=== PATIENT | male | born 1975 | race Caucasian/White ===

== ENCOUNTER 2020-01-27 20:13 | Observation (INO) | payer SELFPAY ==
[2020-01-27 20:18] VITALS: BP 164/93; PULSE 96; RESP 16; TEMP 36.6; O2SAT 96; BMI 34.8
--- NOTE | 2020-01-27 20:29 | W.ED.ABDPA2 ---
HPI - Abdominal Pain General: Chief Complaint: Abdominal Pain Stated Complaint: GALL BLADDER SURGERY Time Seen by Provider: 01/27/20 20:20 Source: patient and EMS Mode of arrival: EMS Limitations: no limitations History of Present Illness: HPI narrative: Mr. Walker is a nice 44-year-old male who was transferred here from [facility] for evaluation for acute cholecystitis. Patient had been accepted by Dr. Briceño in transfer. Please see the patient's outpatient records from [facility] in the ER as they include all of the patient's labs and imaging that was performed today. Patient claims has been having abdominal pain since last night all located in the epigastric area. He is still continue to have pain at this time. Review of patient's paperwork reveals an elevated white count of 13,000 but normal INR. Patient had a normal chemistry including liver enzymes total bilirubin and alkaline phosphatase. Lipase was normal along with magnesium and troponin. Ultrasound showed cholecystitis with a thickened gallbladder wall at 6.1 mm and a common bile duct of 5.1 mm. Patient had visualized gallstones. CT scan of abdomen and pelvis showed distended gallbladder with cholelithiasis in the neck of the gallbladder. Patient also showed inflammatory changes of the ileal bowel wall suggesting a nonspecific enteritis and also showed a possible inflammation of the distal colon suggesting is nonspecific proctitis. Patient's urinalysis was positive for nitrites, leukocyte esterase, 3-5 white cells and 4+ bacteria. Patient got decent pain relief at [facility] and then was transferred here. Patient claims he has mild pain at this time. Associated Symptoms: Reports nausea; Denies chills, coffee ground emesis, constipation, GI cramping, diarrhea, dysuria, fever(s), heartburn, hematochezia, hematuria, hematemesis, melena, syncope and vomiting Review of Systems Const: Denies: fever(s), chills, body aches, fatigue, malaise or diaphoresis Eyes: Denies: change in vision, blurry vision, photophobia, eye discomfort, eye discharge, eye redness or yellow eyes ENMT: Denies: throat pain, odynophagia, hoarseness, swelling of lips/tongue, ear or mastoid pain, ear discharge, change in hearing or nasal discharge Card: Denies: chest pain, palpitations, irregular heart rhythm, edema, lightheadedness, syncope, pre-syncope, dyspnea on exertion or orthopnea Resp: Denies: dyspnea, productive cough, non-productive cough, wheezing, hemoptysis or chest congestion GI: Reports: abdominal pain and nausea; Denies: vomiting, hematemesis, coffee ground emesis, heartburn, diarrhea, constipation, GI cramping, hematochezia or melena : Denies: flank pain, dysuria, urinary frequency, urinary urgency or hematuria Musc: Denies: neck pain, back pain, extremity pain, extremity swelling, joint pain, joint swelling, joint redness, joint warmth or joint stiffness Skin/Breast: Denies: rash, pruritus, erythema, skin pain or skin tenderness Neuro: Denies: headache(s), numbness in extremities, weakness in extremities, sensory changes, lack of coordination, difficulty walking, dizziness, vertigo, confusion, Slurred speech present or seizure-like activity Victor Hugo/Lymph: Denies: easy bruising, easy bleeding, petechiae, purpura or enlarged lymph nodes All/Imm: Denies: urticaria, throat swelling, tongue swelling, facial swelling or acute wheezing PFSH ED PFSH: Medical History Epididymitis Kidney stones Surgical History No pertinent past surgical history Physical Exam Const: COMMON NORMALS: no acute distress, patient oriented x3, no limitations and alert GENERAL APPEARANCE: cooperative HENMT: COMMON NORMALS: normocephalic, atraumatic, external ears normal, EAC's normal and Normal external nose present HEAD & SCALP: normal to inspection, normocephalic and atraumatic FACE & SINUS: normal facial exam and face symmetric NOSE: Normal external nose present and Normal nares present EXTERNAL EAR: Yes external ears normal EXTERNAL AUDITORY CANAL: EAC's normal MOUTH: Normal oral and palatal mucosa present, lip normal and tongue normal Eye: COMMON NORMALS: Equal, round and reactive pupils present and conjunctivae normal GENERAL EYE: appearance normal, both eyes and all related structures ALIGNMENT: Yes alignment normal PERIORBITAL: periorbital findings normal EYELID: eyelids normal CONJUNCTIVA: Yes conjunctivae normal SCLERA: sclerae normal PUPIL: Yes Equal, round and reactive pupils present Neck/C-Spine: COMMON NORMALS: full ROM, no lymphadenopathy, supple, no meningeal signs and no JVD GENERAL: Yes normal visual inspection and Yes trachea midline Chest: COMMONS NORMALS: normal inspection of the chest and normal palpation of entire chest wall Resp: COMMON NORMALS: normal respiratory effort, No retractions, No use of accessory muscles and clear to auscultation bilaterally EFFORT & INSPECTION: Yes able to speak in complete sentences and Yes symmetric chest movement AUSCULTATION: clear to auscultation bilaterally, no crackles, no rales, no rhonchi and no wheezes Cardio: COMMON NORMALS: no JVD, regular rate, regular rhythm, S1 normal heart sound present and S2 normal heart sound present RATE: regular rate RHYTHM: regular rhythm HEART SOUNDS: S1 normal heart sound present, S2 normal heart sound present, no click, no gallops, no murmurs and no rubs GI: COMMON NORMALS: Soft to palpation and No hepatosplenomegaly present PALPATION: Yes Soft to palpation, Yes Tenderness to palpation present (GI) Details: RUQ, No Guarding due to palpation present (GI), No Rigid due to palpation, Yes No hepatosplenomegaly present, No Hernia present, No Palpable mass present and No Pulsatile mass present : COMMON NORMALS: Yes no CVA tenderness BLADDER/KIDNEY EXAM: Yes no CVA tenderness Back/Pelvis: COMMON NORMALS: no CVA tenderness, thoracic and lumbar spine normal to inspection, no thoracic nor lumbar tenderness and thoraco-lumbar ROM normal Extremity: COMMON NORMALS: normal to inspection, full ROM, capillary refill normal, no joint enlargement, no clubbing, cyanosis or edema and no calf tenderness Neuro: COMMON NORMALS: patient oriented x3, CN's II-XII intact bilaterally, moves all extremities, no focal motor deficits and no sensory deficits noted SENSORIUM/ORIENTATION: Yes alert MENINGEAL SIGNS: Yes no meningeal signs SPEECH: speech normal Psych: COMMON NORMALS: mental status grossly normal, Normal thought process present, cooperative, normal affect, speech normal and activity/motor behavior normal SPEECH: Yes normal speech THOUGHT PROCESS: Normal thought process present Skin: COMMON NORMALS: no rashes or lesions noted, turgor normal, no jaundice, no petechiae and no mottling GENERAL SKIN EXAM: no rashes or lesions noted and turgor normal Course Vital Signs: Vital signs: Vital Signs Temperature 97.9 F 01/27/20 20:18 Pulse Rate 96 11/18/20 20:18 Respiratory Rate 16 01/27/20 20:18 Blood Pressure 164/93 01/27/20 20:18 Pulse Oximetry 96 01/27/20 20:18 MDM - Abdominal Pain MDM Narrative: Medical decision making narrative: Mr. Walker is a nice 44-year-old male who comes in as a transfer from [facility]. Per review of the chart the patient was found to have acute cholecystitis, possibly enteritis and proctitis. I reviewed the case in its entirety with Dr. Birmingham who was somewhat familiar with the patient. He agrees at this time to admit the patient for acute cholecystitis. We will start the patient IV fluids, pain medication and the patient will receive Zosyn. Dr. Birmingham's plan is to evaluate the patient in the morning and determine where to move forward from there. Medical Records: Attestation: I reviewed the patient's medical records. Medical records narrative: All paperwork from [facility] that was transferred with the patient is reviewed. This paperwork will be scanned made a part of this patient's chart. EKG Data ^: EKG 1: Attestation: I personally reviewed and interpreted this EKG as follows: EKG interpretation date: 01/27/20 EKG interpretation time: 14:07 Interpretation: Normal sinus rhythm at 89 beats a minute, normal axis, no blocks, no acute ST-T wave changes. Discharge Plan Discharge Patient Disposition: Placed in Observation Clinical Impression: Acute calculous cholecystitis Condition: Stable Coding Level of Care Code ED Cigarette Making Examiner for Violette Hanks
[2020-01-27 21:03] VITALS: RESP 18; O2SAT 97
[2020-01-27] MEDS: morphine 4 mg/mL SDV 1 mL IVP (21:03)
[2020-01-27] MEDS: ondansetron 2 mg/ML SDV 2 mL 4 MG IVP (21:03)
[2020-01-27] MEDS: sodium chloride 0.9% 1,000 ML 999 ML IV (21:06)
[2020-01-27] MEDS: piperacillin-tazobactam 3.375 GM in sodium chloride 0.9% (plus) 50 ML IV (21:07)
[2020-01-27 22:39] VITALS: BP 140/79; PULSE 87; RESP 16; O2SAT 96
[2020-01-27 23:05] VITALS: BP 134/79; PULSE 81; RESP 18; TEMP 37.2; O2SAT 97
[2020-01-28] VITALS (23 sets, daily range): BP systolic 115–162; BP diastolic 68–92; PULSE 62–102; RESP 16–24; TEMP 36.5–37.2; O2SAT 90–98
[2020-01-28] MEDS: sodium chloride 0.9% 1,000 ML 100 ML IV ×2 (00:45→11:29)
[2020-01-28] MEDS: morphine 4 mg/mL SDV 1 mL IVP (01:38)
[2020-01-28 03:11] LABS: Basophils # 0.1 10^3/uL (0.0-0.1); Basophils % 0.4 %; Eosinophils # 0.1 10^3/uL (0.0-0.8); Eosinophils % 0.9 %; Hematocrit 44.3 % (42.0-52.0); Hemoglobin 15.4 g/dL (11.7-16.6); Lymphocytes # 1.9 10^3/uL (0.8-4.8); Lymphocytes % 16.1 %; Mean Corpuscular HGB Conc 34.8 g/dL (30.0-36.0); Mean Corpuscular Hemoglobin 29.5 pg (28.0-34.0); Mean Corpuscular Volume 84.9 fL (80-94); Mean Platelet Volume 9.8 fL (7.4-10.4); Monocytes # 1.4 10^3/uL (0.2-0.9); Monocytes % 11.9 %; Neutrophils # 8.33 10^3/uL (1.8-7.7); Neutrophils % 70.5 %; Nucleated Red Blood Cells % 0 %; Platelet Count 210 10^3/cmm (130-400); Red Blood Count 5.22 10^6/uL (4.1-5.3); Red Cell Distribution Width 12.6 % (12.1-15.1); White Blood Count 11.8 10^3/uL (4.0-10.0)
[2020-01-28 03:29] LABS: Partial Thromboplastin Time 33.2 SECONDS (23.9-36.7)
[2020-01-28 03:40] LABS: Alanine Aminotransferase 46 U/L (0-41); Albumin Level 3.9 g/dL (3.5-5.2); Alkaline Phosphatase 76 IU/L (40-130); Aspartate Amino Transferase 20 U/L (0-40); Blood Urea Nitrogen 13 mg/dL (6-20); Calcium 8.3 mg/dL (8.5-10.5); Carbon Dioxide 24 mmol/L (22-29); Chloride 105 mmol/L (98-107); Globulin 2.4 g/dL (1.3-4.6); Glucose 103 mg/dL (65-115); Osmolality Calculated 288 mOsm/kg (285-295); Sodium 139 mmol/L (136-145); Total Bilirubin 0.8 mg/dL (0.15-1.2); Total Protein 6.3 g/dL (6.6-8.7)
--- NOTE | 2020-01-28 05:52 | P.HP_ITS ---
Providers/Chief Complaint Admitting Physician: Kody Birmingham MD Chief Complaint: GALL BLADDER SURGERY History of Present Illness Cheko Walker is a 44 year old male who says he started having upper abdominal fullness and discomfort around 36 hours ago after eating a meal of chicken patties and stuffing. He says the pain persisted that evening and he woke up around 1 AM and took some [id number] pain medication and a stool softener, thinking he may be constipated even though he had had a bowel movement the day before. By 4 AM the pain had worsened. He decided he wanted to go to the local emergency room and so while he was getting up and walking around and getting ready, he says he passed out and woke up on the floor. Surprisingly, however, he says he woke up feeling considerably better and so he decided not to go to [facility] emergency room. He ate some cereal for breakfast yesterday morning afterwards but then wished he had not, as the pain returned. He says he did not really feel gassy or bloated with the pain but did have some nausea. He never vomited. He ended up going to the emergency department in [place] and imaging and laboratory studies were found to be consistent with acute cholecystitis, including an ultrasound which revealed cholelithiasis and gallbladder wall thickening up to 6 mm, and a CAT scan which showed cholelithiasis with a stone in the neck of the gallbladder. Liver function studies were all reported to be normal, as well as a serum lipase. He had some other nonspecific findings in the abdomen on imaging. He was eventually transferred to [place] for further management. The patient says he feels a little bit better this morning as long as he does not move around. He never did have any fevers or chills with any of this. His last bowel movement was yesterday morning. He denies any previous history of food intolerances or similar episodes of pain to this. He has dealt with some kidney stones that have passed by history, but the pain was different than this. Review of Systems General: Reports: 10 or more systems reviewed and unremarkable except in HPI and below Const: Denies: fever(s) or chills Resp: Denies: productive cough GI: Reports: abdominal pain and nausea; Denies: vomiting : Denies: difficulty urinating or dysuria Medications/Allergies Home Medications Medication Instructions Recorded Confirmed Last Taken Type acetaminophen 2,000 mg PO PRN 01/27/20 01/27/20 01/27/20 01:00 History Allergies Allergy/AdvReac Type Severity Reaction Status Date / Time shellfish derived AdvReac nausea/vom Verified 01/28/20 05:57 iting PFSH Acute PFSH: Medical History (Updated 01/28/20 @ 06:00 by Kody Birmingham MD) Epididymitis Kidney stones passed Surgical History No pertinent past surgical history Social History (Updated 01/28/20 @ 05:58 by Kody Birmingham MD) Smoking and tobacco status: never smoked Alcohol intake: current Alcohol intake frequency: holidays/special occasions only Vitals/I&O/Wt Last Vital Signs Temp 98.2 F 01/28/20 04:38 Pulse 81 01/28/20 04:38 Resp 18 01/28/20 04:38 BP 126/82 01/28/20 04:38 Pulse Ox 97 01/28/20 04:38 01/27/20 01/27/20 01/28/20 14:59 22:59 06:59 Intake Total 240 / 240 Output Total 600 / 600 Balance -360 / -360 Weight last 48 hrs Weight 216 lb Physical Exam Narrative: EXAM NARRATIVE: The patient was encountered in his hospital room. He does not appear to be in any acute distress. The pupils are equal. No carotid bruits are heard. The lungs are clear anteriorly. The heart is regular. The abdomen reveals bowel sounds and is soft. He has some mild epigastric tenderness and some moderate and significant right upper quadrant tenderness with a positive Sexton's sign. No obvious masses are palpated but he does have voluntary guarding in the right upper quadrant. The extremities reveal no edema. Neurologically the patient appears to be grossly intact. Data : 01/28/20 02:25 01/28/20 02:25 A&P Assessment and plan (1) Acute calculous cholecystitis: I have discussed gallbladder disease and gallbladder surgery with the patient in detail. Risks of surgery including bleeding, infection, internal organ injury, chances of an open procedure, chances of a postoperative bile leak were all discussed. The patient seems to understand and is agreeable to proceeding with a cholecystectomy this morning. The patient has been n.p.o. I will make arrangements for a laparoscopic or possibly open cholecystectomy today. Status: Acute Attestations Medical Necessity Statement*: Based on my medical assessment, presenting symptoms and consideration of the scope of surgical therapy, I expect this patient will require treatment in the hospital for a period of time spanning less than 2 midnights, and is therefore being placed in observation status. Coding Level of Care Code Acute Exchange Underwriting Consultant for [facility] Demario Diagnoses Acute calculous cholecystitis K80.00
[2020-01-28] MEDS: piperacillin-tazobactam 3.375 GM in sodium chloride 0.9% (plus) 50 ML IV ×2 (06:36→16:07)
--- NOTE | 2020-01-28 12:33 | ANES.PREANE2 ---
Pre-Anesthetic Assessment Pre-Anesthetic Assessment: Height/Weight: Height 1.68 m Weight 97.976 kg Temp Pulse Resp BP Pulse Ox 98.8 F 72 18 129/82 96 01/28/20 11:39 01/28/20 11:39 01/28/20 11:39 01/28/20 11:39 01/28/20 11:39 Preop Diagnosis: cholecystitis Proposed Procedure: Operation Date: 01/28/20 13:00 Proposed Procedures p Laparoscopic Cholecystectomy(Not Applicable) - Kody Birmingham MD Familial anesthetic complications: none Was Beta Drew taken within 24 hours: N/A Last intake: Intake Last Liquid Date 01/28/20 Last Liquid Time 00:00 Last Solid Date 01/27/20 Last Solid Time 06:30 Social: Social History: No alcohol and No tobacco Exam: Pre-Anes Outpt Exam: alert, oriented x 3, clear to auscultation bilaterally and regular rate & rhythm Airway: Cervical ROM: WNL MP: 4 Dentition: Full Metabolic: Metabolic: Morbid obesity Anesthetic Plan: ASA status: 1 Anesthesia: General Risk of > 500 ml blood loss (7ml/kg in children): No Meds/Allergies Current Medications: Current Medications Generic Name Dose Route Start Last Admin Trade Name Freq PRN Reason Stop Dose Admin Sodium Chloride 1,000 mls @ 100 m ls/hr 01/27/20 20:45 01/28/20 11:29 Sodium Chloride 0.9% IV 100 mls/hr .Q10H YULI Administration Piperacillin Sod/T azobactam 50 mls @ 12.5 mls /hr 01/27/20 20:45 01/28/20 10:36 Sod 3.375 gm/ So dium Chloride IV Infused Q8H YULI Infusion Protocol Morphine Sulfate 4 mg 01/27/20 20:31 01/28/20 01:38 Morphine 4 Mg/Ml Sdv 1 Ml IVP 4 mg Q4H PRN Administration SEVERE PAIN PFSH Anesthesia PFSH: Medical History (Updated 01/28/20 @ 06:00 by Kody Birmingham MD) Epididymitis Kidney stones passed Surgical History No pertinent past surgical history Social History (Updated 01/28/20 @ 05:58 by Kody Birmingham MD) Smoking and tobacco status: never smoked Alcohol intake: current Alcohol intake frequency: holidays/special occasions only Data Anesthesia CBC & Chem 7: 01/28/20 02:25 01/28/20 02:25 Other Labs: Laboratory Results - last 48 hr 01/28/20 01/28/20 01/28/20 02:25 02:25 02:25 WBC 11.8 H RBC 5.22 Hgb 15.4 Hct 44.3 MCV 84.9 MCH 29.5 MCHC 34.8 RDW 12.6 Plt Count 210 MPV 9.8 Neut % (Auto) 70.5 Lymph % (Auto) 16.1 [place] % (Auto) 11.9 Eos % (Auto) 0.9 Baso % (Auto) 0.4 Neut # (Auto) 8.33 H Lymph # (Auto) 1.9 [place] # (Auto) 1.4 H Eos # (Auto) 0.1 Baso # (Auto) 0.1 Nucleated RBC % (auto) 0 Nucleated RBCs # 0.0 APTT 33.2 Sodium 139 Potassium 4.0 Chloride 105 Carbon Dioxide 24 Anion Gap 14.0 BUN 13 Creatinine 0.8 GFR Calculation 106.0 Glucose 103 Calculated Osmolality 288 Calcium 8.3 L Total Bilirubin 0.8 AST 20 ALT 46 H Alkaline Phosphatase 76 Total Protein 6.3 L Albumin 3.9 Globulin 2.4 Cardiac Studies: No Data to Display
[2020-01-28] MEDS: metroNIDAZOLE IV 500 MG/100 ML PREMIX 100 MG IV (13:07)
--- NOTE | 2020-01-28 14:01 | P.OP_ITS ---
Operative Report Date of procedure: January 28, 2020 Pre-op Diagnosis: Acute calculus cholecystitis. Post-op diagnosis: same Procedure Done: Laparoscopic cholecystectomy. Specimens removed/disposition: Gallbladder. Surgeon: Kody Birmingham Anesthesia: General Estimated blood loss (mL): 10 Complications: None. Condition: stable Disposition: PACU Procedure: The patient was brought to the Operating Room and was placed in a supine position on the Operating Room table. General endotracheal anesthesia was induced. The abdomen was prepped and draped in a sterile fashion. A small vertical incision was carried out in the inferior aspect of the umbilicus. Blunt dissection was carried out down to the fascia, which was grasped with a Brian clamp. A stay suture of 0 Vicryl was placed on either side of the midline and the midline fascia was incised. The underlying peritoneum was opened bluntly and the Joyce port was placed directly into the peritoneal cavity and was held in place with the inflatable balloon. The peritoneal cavity was insufflated with carbon dioxide. The laparoscope was used to inspect the abdominal cavity. The patient's gallbladder was clearly distended, somewhat pink and edematous consistent with acute cholecystitis. A 5 millimeter port was placed in the epigastrium under direct vision. Two 5-millimeter ports were placed on the right side of the abdomen under direct vision. The gallbladder was palpated with a grasper and was found to be distended as expected. A laparoscopic needle was used to remove approximately 50 mL of clear fluid from the gallbladder lumen consistent with cystic duct obstruction. The gallbladder was then grasped and was elevated. The patient had some adhesions to the fundus of the gallbladder which were taken down using blunt dissection with some cautery to maintain hemostasis. Blunt dissection and hydrodissection were carried out in the infundibular region of the gallbladder and the cystic duct and cystic artery were identified. All of the surrounding tissue was edematous. The gallbladder was partially removed from the liver bed using cautery and the spatula to confirm the anatomy before the structures were clipped and divided. The gallbladder was then removed from the liver bed using cautery and the spatula. Again, the plane between the gallbladder and the liver was edematous and somewhat friable, but surprisingly little bleeding occurred. After the gallbladder had been removed from the liver bed, the laparoscope was moved to the epigastric port and the gallbladder was removed from the peritoneal cavity through the umbilical port site after being placed in a laparoscopic bag. The stay sutures of Vicryl were tied to each other at the umbilicus, closing the defect so that it was airtight. The perihepatic spaces were extensively irrigated with saline and the liver bed was reinspected. No ongoing problems were seen. The remaining ports were removed from the abdominal wall and the pneum operitoneum was evacuated. All skin incisions were closed using inverted interrupted sutures of 4-0 Vicryl. Benzoin and Steri-Strips were placed over the incisions and Band-Aids followed. The patient was taken to the Recovery Area in stable condition postoperatively.
--- NOTE | 2020-01-28 14:08 | PC.CHAP ---
Pastoral Care Encounter/Spiritual Assessment Type of Contact [] Declined textile scrap salvager visit [] Patient/Family/Request visit [] Outpatient visit [] Follow-up visit [] Physician referral [] Code/Alert [x] Routine visit [] Staff referral [] Actively dying [] Patient sleeping [] Family support [] [] Out of room [] Palliative care [] [x] Receiving care in room [] Pre-surgical visit [] Trauma [] Long length of stay [] ICU visit [] Other: Relational/Emotional Strength [x] Patient feels connected with others/family/visitors/staff [] Distress [] Loneliness/isolation [] Abandonment Spirituality of Patient [x] Person of Yahaira [] Attends Restorationist of their Yahaira [x] Believes in Prayer [] Reads Bible or Jew materials [] There are Spiritual issues to be addressed Rfid Manager Interventions [x] Prayer [x] Active listening [x] Non-anxious presence [x] Spiritual/emotional support [] Crisis/trauma care [x] Spiritual counseling [] Bereavement support [] Provided bereavement packet [] Provided Bible/devotional materials [] Provided toy/stuffed animal, coloring book to patient or family member [] Provided Communion [] Anointing/[place] [] Salvation [x] Completed spiritual assessment [] Other: Impact on Illness or Injury [] Angry [] Fearful [] Anxious [] Often cries [] Exhaustion [] Unable to work [] Unable to attend buddhist [] Unable to walk/stand [] Unable to read [] Unable to drive [] Unable to eat/drink [] Unable to sleep [] Unable to be with family [] Patient intubated [] Other: Summary Going to surgery on this after noon has a good attitude, going home tomorrow Time spent with patient 10 mins
--- NOTE | 2020-01-28 14:53 | SUR.PHASEI ---
1428 PT AWAKE ALERT , TO FLOOR PER BED PT ON 2LNC SATS 93% PT MOVED SELF TO BED WITH NO ASSIST, ABD SOFT WITH 4 SITES D/I.
[2020-01-28] MEDS: D5-NS 0.45% + KCL 20 mEq 20 MEQ/1,000 ML BAG 100 MEQ IV (15:09)
[2020-01-28] MEDS: famotidine 20 mg/2 mL INJ IVP (15:14)
[2020-01-28] MEDS: HYDROcodone-acetaminophen 5-325 mg Tablet PO (15:14)
[2020-01-28] MEDS: levalbuterol 0.63 mg/3 mL Neb INHALATION ×2 (15:35→20:26)
--- NOTE | 2020-01-28 15:55 | PM.PACU ---
PACU note Post-Anesthesia Exam: awake and vital signs stable Disposition: back to floor
[2020-01-28] MEDS: heparin 5,000 unit/mL INJ 1 mL 5000 UNIT SUBCUT (16:08)
[2020-01-29] VITALS (7 sets, daily range): BP systolic 108–116; BP diastolic 65–74; PULSE 73–89; RESP 16–20; TEMP 36.7–37.1; O2SAT 93–97
[2020-01-29] MEDS: D5-NS 0.45% + KCL 20 mEq 20 MEQ/1,000 ML BAG 100 MEQ IV (03:06)
[2020-01-29] MEDS: piperacillin-tazobactam 3.375 GM in sodium chloride 0.9% (plus) 50 ML IV (03:06)
[2020-01-29] MEDS: famotidine 20 mg/2 mL INJ IVP (04:37)
[2020-01-29] MEDS: heparin 5,000 unit/mL INJ 1 mL 5000 UNIT SUBCUT (04:38)
[2020-01-29 06:22] LABS: Basophils % 0.2 %; Eosinophils % 0.1 %; Hematocrit 43.1 % (42.0-52.0); Lymphocytes # 1.3 10^3/uL (0.8-4.8); Lymphocytes % 12.1 %; Mean Corpuscular HGB Conc 34.8 g/dL (30.0-36.0); Mean Corpuscular Hemoglobin 29.6 pg (28.0-34.0); Mean Platelet Volume 9.7 fL (7.4-10.4); Monocytes # 0.9 10^3/uL (0.2-0.9); Monocytes % 8.9 %; Neutrophils # 8.27 10^3/uL (1.8-7.7); Neutrophils % 78.3 %; Nucleated Red Blood Cells % 0 %; Platelet Count 241 10^3/cmm (130-400); Red Blood Count 5.07 10^6/uL (4.1-5.3); Red Cell Distribution Width 12.2 % (12.1-15.1); White Blood Count 10.6 10^3/uL (4.0-10.0)
[2020-01-29 06:39] LABS: Blood Urea Nitrogen 12 mg/dL (6-20); Calcium 8.5 mg/dL (8.5-10.5); Carbon Dioxide 24 mmol/L (22-29); Chloride 105 mmol/L (98-107); Glucose 121 mg/dL (65-115); Osmolality Calculated 287 mOsm/kg (285-295); Sodium 138 mmol/L (136-145)
[2020-01-29 06:40] LABS: Alanine Aminotransferase 54 U/L (0-41); Albumin Level 3.8 g/dL (3.5-5.2); Alkaline Phosphatase 76 IU/L (40-130); Aspartate Amino Transferase 31 U/L (0-40); Globulin 2.5 g/dL (1.3-4.6); Total Bilirubin 0.7 mg/dL (0.15-1.2); Total Protein 6.3 g/dL (6.6-8.7)
--- NOTE | 2020-01-29 07:40 | PM.PN ---
Subjective Subjective: Interval history: The patient feels better today. He is getting a little bit of an appetite back. He is passing flatus. Vitals/I&O/Wt Last Vital Signs Temp 98.0 F 01/29/20 05:00 Pulse 89 01/29/20 05:00 Resp 16 01/29/20 05:00 BP 116/72 01/29/20 05:00 Pulse Ox 97 01/29/20 05:00 01/28/20 01/29/20 01/29/20 22:59 06:59 14:59 Intake Total 410 / 2840 1180 / 2840 Output Total 400 / 2605 650 / 2605 Balance 530 / 235 Weight last 48 hrs Weight 216 lb Physical Exam Narrative: EXAM NARRATIVE: Bowel sounds are present. The surgical incisions look good. Data : 01/29/20 05:20 01/29/20 05:20 A&P Assessment and plan (1) Acute calculous cholecystitis: Status post laparoscopic cholecystectomy on 01/28/2020. Soft diet this morning. Plan discharge later this morning. Status: Acute Attestations Medical Necessity Statement*: Discharge planned for later today. Coding Level of Care Code Acute Health Policy Manager for [facility] Demario Diagnoses Acute calculous cholecystitis K80.00
[2020-01-29] MEDS: levalbuterol 0.63 mg/3 mL Neb INHALATION (08:24)
--- NOTE | 2020-01-29 09:18 | PM.DCS ---
Discharge Providers Date of Admission: 01/27/20 20:33 Date of Discharge: January 29, 2020 Attending Provider at Admission: Kody Birmingham MD Attending Provider at Discharge: Kody Birmingham MD Diagnoses at Discharge Discharge Diagnosis (1) Acute calculous cholecystitis: Status: Acute Reason for Visit Reason for Visit: GALL BLADDER SURGERY Hospital Course Hospital Course This is a 44-year-old white male who developed abdominal pain prior to presenting to the emergency department at [facility]. He was found to have significant right upper quadrant pain and imaging changes of cholelithiasis. He was sent to [place] for further management. Further evaluation revealed an exam consistent with acute calculus cholecystitis. The patient was taken to the operating room and a laparoscopic cholecystectomy was performed. By the following morning he was already feeling much better, was passing flatus, tolerating liquids orally, and was anxious to go home. All of his wounds looked good. Laboratory results revealed no concerns. The patient was instructed with respect to wound care, activity limitations, diet, etc. Arrangements will be made for him to follow-up in my office as an outpatient. Physical Exam Narrative: EXAM NARRATIVE: At the time of discharge, the patient's abdomen revealed good bowel sounds. All of his incisions appear to be healing well. Discharge Data Data Completed and Pending: Pending at discharge Category Date Time Status ES surgery / GI i mages Routine Exams 01/28/20 12:26 Ordered Pathology: Surgic al [PTH] Routine Pth 01/28/20 13:57 Received Labs from last 24 hours 01/29/20 01/29/20 01/29/20 05:20 05:20 05:20 WBC 10.6 H RBC 5.07 Hgb 15.0 Hct 43.1 MCV 85.0 MCH 29.6 MCHC 34.8 RDW 12.2 Plt Count 241 MPV 9.7 Neut % (Auto) 78.3 Lymph % (Auto) 12.1 [place] % (Auto) 8.9 Eos % (Auto) 0.1 Baso % (Auto) 0.2 Neut # (Auto) 8.27 H Lymph # (Auto) 1.3 [place] # (Auto) 0.9 Eos # (Auto) 0.0 Baso # (Auto) 0.0 Nucleated RBC % (a uto) 0 Nucleated RBCs # 0.0 Sodium 138 Potassium 4.0 Chloride 105 Carbon Dioxide 24 Anion Gap 13.0 BUN 12 Creatinine 0.8 GFR Calculation 106.0 Glucose 121 H Calculated Osmolal ity 287 Calcium 8.5 Total Bilirubin 0.7 Direct Bilirubin 0.20 AST 31 ALT 54 H Alkaline Phosphata se 76 Total Protein 6.3 L Albumin 3.8 Globulin 2.5 Vitals: Last Vital Signs Temp 98.7 F 01/29/20 07:57 Pulse 73 01/29/20 07:57 Resp 18 01/29/20 07:57 BP 113/65 01/29/20 07:57 Pulse Ox 93 01/29/20 07:57 Discharge Plan Discharge Patient Disposition: Home Condition: Stable Prescriptions: New hydrocodone-acetaminophen 5-325 mg tablet 1 - 2 tab PO Q5H PRN (Reason: pain) Qty: 30 RF: 0 Discontinued acetaminophen 500 mg Tablet 2,000 mg PO PRN RF: 0 Discharge Orders: Discharge Order (Routine); Ordered 01/29/20 Ordered By: Kody Birmingham Referrals: Dr Ohcoa at [facility] [Other] - 02/01/20 1:00 pm (Bring a proof of income. (2019 Taxes, Food stamps, etc.)) Kody Birmingham MD [Physician] - 02/09/20 2:00 pm () Discharge Diet: Advance as tolerated Discharge Activity: Limit activity as instructed Patient Instructions: Hydrocodone/Acetaminophen (By mouth), Laparoscopic Cholecystectomy (DC) Activity Restrictions/Additional Instructions: 1. Discharge to home today. 2. Appointment to see Dr. Birmingham in 10-14 days. 3. Band-Aids off later today, leave Steri-Strip(s) on, may shower. 4. [place] 5/325 1-2 tablets by mouth every 5 hours as needed for pain. #30, no refills. No lifting over 20 pounds, no repetitive bending or twisting, no strenuous pushing / pulling or other heavy activity. Ambulate regularly. May go up and down steps if needed. Discharge Attestations Time Spent in Discharge Care*: less than 30 min Quality Metrics Clinical Quality Measures During this hospital stay, did patient experience: None Coding Level of Care Code Acute Group Segment Consultant for [facility] Fwd Diagnoses Acute calculous cholecystitis K80.00
--- NOTE | 2020-01-29 09:25 | ANE.PACU2 ---
Inpatient post-anesthesia follow up: Airway intact: Yes Vital signs: Temperature 98.7 F Pulse Rate [Monito r] 96 Pulse Rate 73 Respiratory Rate 18 Blood Pressure [Le ft Arm] 164/93 Blood Pressure 113/65 Pulse Oximetry 93 Oxygen Delivery Me thod Nasal Cannula Oxygen Flow Rate 2 Fraction of Inspir ed Oxygen Hydration adequate: Yes Nausea and vomiting: No Pain level: 2 Mental status: Baseline Additional Comments: patient states he woke up not feeling or being able to move his feet and toes, but that 20 minutes after he arrives on the floor he went completely back to normal and now has no neuromusculoskeletal defects
== END 2020-01-29 12:15 | disposition home or self-care (01) ==
LOC: ER 20:51 → MEDSURG 20:57
PROVIDERS: Admitting Provider Surgery; Emergency Provider Emergency Medicine; Visit Provider Surgery
PROC: 0FT44ZZ Resection of Gallbladder, Percutaneous Endoscopic Approach (ICD-10-PCS; CPT 47562; principal; 2020-01-28 13:00)
DX: K80.10 Calculus of gallbladder with chronic cholecystitis without obstruction (principal)
CPT/HCPCS: 47562; 12345; 36415; 80048; 80053; 80076; 85025; 85730; 88304; 90471; 90686; 94640; 96361; 96365; 96366; 96372; 96374; 96375; 99283; 99285; G0378; J0690; J1100; J1644; J1885; J2270; J2405; J2543; J2704; J2710; J3010; J3490; J7030; J7614; S0030

== ENCOUNTER 2024-05-12 10:14 | Day surgery (SDC) | payer OTHER, SELFPAY ==
[2024-05-12 10:41] VITALS: BP 145/107; PULSE 99; RESP 16; TEMP 36.4; O2SAT 97
[2024-05-12 10:42] VITALS: BMI 34.5
[2024-05-12] MEDS: sodium chloride 0.9% 1,000 ML 30 ML IV (10:57)
--- NOTE | 2024-05-12 11:12 | W.PM.OPSUD ---
Surgery/Procedure H&P Update DATE OF PROCEDURE: May 12, 2024 DATE H&P PERFORMED: 05/18/24 H&P UPDATE INFORMATION: I have reviewed H&P completed within last 30 days, I have examined patient prior to procedure and No changes to prior documentation PLANNED PROCEDURE: Operation Date: 05/12/24 11:45 Proposed Procedures p Colonoscopy 63515, G0105, Z12.11(Not Applicable) - Rodo Mcnamara MD
--- NOTE | 2024-05-12 11:22 | ANES.PREANE2 ---
Pre-Anesthetic Assessment Height/Weight: Height 1.68 m Weight 97.069 kg Temp Pulse Resp BP Pulse Ox O2 Del Method 97.6 F 99 16 145/107 97 Room Air 05/12/24 10:41 05/12/24 10:41 05/12/24 10:41 05/12/24 10:41 05/12/24 10:41 05/12/24 10:41 Operation Date: 05/12/24 11:45 Proposed Procedures p Colonoscopy 12892, G0105, Z12.11(Not Applicable) - Rodo Mcnamara MD Familial anesthetic complications: none Was Beta Drew taken within 24 hours: N/A Was Clonidine taken within 24 hours: N/A Last intake: Intake Last Liquid Date 05/11/24 Last Liquid Time 23:30 Last Solid Date 05/10/24 Last Solid Time 23:00 Last Intake: 23:30 Social No alcohol and No tobacco Exam alert and oriented x 3 Airway Submandibular: within normal limits Cervical ROM: within normal limits Mallampati: Class IV Dentition: full Comments: Comments: full milligan History/ROS No significant complaints GI Gastroesophageal Reflux Disease (takes tums) Anesthetic Plan ASA status: 1 Anesthesia: Anesthesia Evaluation and MAC Medications/Allergies Home Medications ?Medication ?Instructions ?Recorded ?Confirmed ?Last Taken ?Type acetaminophen 500 mg tablet 500 mg PO Q6H PRN Pain 04/20/24 05/07/24 Unknown History (Tylenol Extra Strength) Allergies Allergy/AdvReac Type Severity Reaction Status Date / Time shellfish derived AdvReac nausea/vom Verified 05/07/24 08:47 iting Current Medications Generic Name Dose Route Start Last Admin Trade Name Freq PRN Reason Stop Dose Admin Sodium Chloride 1,000 mls @ 30 mls/hr 05/12/24 08:30 05/12/24 10:57 Sodium Chloride 0.9% IV 30 mls/hr .Q24H YULI Administration PFSH Anesthesia Medical History Epididymitis Kidney stones passed Surgical History (Updated 04/20/24 @ 11:26 by BRENNON Aguilar) No pertinent past surgical history Social History Smoking and tobacco/nicotine status: never used tobacco/nicotine Alcohol intake: current Alcohol intake frequency: holidays/special occasions only Data Anesthesia Cardiac Studies: No Data to Display
[2024-05-12 11:58] VITALS: BP 119/87; PULSE 86; RESP 18; TEMP 36.1; O2SAT 95
[2024-05-12 12:13] VITALS: BP 122/84; PULSE 89; RESP 18; O2SAT 96
--- NOTE | 2024-05-12 12:15 | ANE.PACU2 ---
Inpatient post-anesthesia follow up: Airway intact: Yes Vital signs: Temperature 97 F Pulse Rate 89 Respiratory Rate 18 Blood Pressure 122/84 Pulse Oximetry 96 Oxygen Delivery Me thod Room Air Oxygen Flow Rate Fraction of Inspir ed Oxygen Hydration adequate: Yes Nausea and vomiting: No Pain level: 1 Mental status: Baseline
== END 2024-05-12 12:38 | disposition home or self-care (01) ==
PROVIDERS: PCP Family Medicine; Visit Provider Student in an Organized Health Care Education/Training Program
PROC: 0DJD8ZZ Inspection of Lower Intestinal Tract, Via Natural or Artificial Opening Endoscopic (ICD-10-PCS; CPT 45378; principal; 2024-05-12 11:45)
DX: Z12.11 Encounter for screening for malignant neoplasm of colon (principal); K64.4 Residual hemorrhoidal skin tags; D12.5 Benign neoplasm of sigmoid colon; K21.9 Gastro-esophageal reflux disease without esophagitis
CPT/HCPCS: 45385; 88305; J2704; J7030